=== PATIENT | male | born 1975 | race Caucasian/White ===

== ENCOUNTER 2019-06-20 11:59 | Day surgery (SDC) | payer SELFPAY ==
[~2019-06-20] VITALS: Ht 177.8 cm; Wt 81.8 kg
[~2019-06-20 11:59] MED LIST: ATEN25TA PO; ELIQ5TAB PO
[2019-06-20] MEDS ORDERED: LIDOCAINE 2% INJ 100 MG/5 ML SDV (FOR ANES.) As Ordered ONE (13:00)
[2019-06-20] MEDS ORDERED: LR 1,000 ML IV ONE (13:00)
[2019-06-20] MEDS ORDERED: PROPOFOL 200 MG/20 ML VIAL As Ordered ONE (13:00)
[2019-06-20] MEDS ORDERED: MIDAZOLAM INJ 2 MG/2 ML VIAL (J2250) As Ordered ONE (13:41)
[2019-06-20 14:56] VITALS: BP 112/73
--- NOTE | 2019-06-20 14:56 | RO ---
DATE OF PROCEDURE: 06/20/2019 PREPROCEDURE DIAGNOSIS: Persistent atrial fibrillation. POSTPROCEDURE DIAGNOSIS: Normal sinus rhythm. FINDINGS: Successful direct cardioversion. PROCEDURE PERFORMED: Direct current electrocardioversion. SURGEON: Dr. Adam Reid. DEMAND GENERATION MANAGER: None. ANESTHESIA: IV sedation with monitored anesthetic care (propofol) administered by certified registered nurse fur cleaner (BODY ENGINEER). COMPLICATIONS: None. DESCRIPTION OF PROCEDURE: The patient received lidocaine IV followed by propofol as administered by the BODY ENGINEER. Prior to the start of the procedure, electrical cardioversion patches were placed by Dr. Reid with the sternal patch placed over the left posterior hemithorax and the apical patch placed over the left anterior chest. (i.e., reverse polarity). Once the patient was adequately sedated, he received a single 150 joule synchronized direct current cardioversion shock, which failed to convert him to sinus rhythm. He was then given a second shock 200 joules, synchronized direct current, which was successful converting him to sinus rhythm. The procedure was uncomplicated and no episodes of excessive sinus pause was observed following the cardioversion.
[2019-06-20] MEDS ORDERED: ACETAMINOPHEN TAB 650MG DOSE (2X325MG) PO PRN (16:01)
--- NOTE | 2019-06-21 14:47 | ECGEPIP ---
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
== END 2019-06-20 15:18 | disposition home or self-care (01) ==
LOC: M SDC 11:59
PROVIDERS: ATTEND Internal Medicine Cardiovascular Disease
DX: I48.1 Persistent atrial fibrillation (principal); Z79.01 Long term (current) use of anticoagulants
CPT/HCPCS: 92960; 93005; J2250

== ENCOUNTER → 2022-01-21 | Outpatient (CLI) | payer OTHER ==
[~2022-01-21] MED LIST changes: +CAPE1TAB PO; +CAPE1TAB2 PO; +COLA100C5 PO; +ECOT81TA5 PO; +GASTROGRAFIN SOLUTION 30ML (Q9963) As Ordered ONE; +ISOVUE-370 76% 100ML VIAL As Ordered ONE; +OXYC1CAP PO
== END ==
LOC: M RAD 15:03
PROVIDERS: ATTEND Specialist
DX: C20 Malignant neoplasm of rectum (principal)
CPT/HCPCS: 71260; 74177; Q9963; Q9967

== ENCOUNTER → 2022-01-22 | Outpatient (CLI) | payer OTHER ==
[~2022-01-22] MED LIST changes: -GASTROGRAFIN SOLUTION 30ML (Q9963) As Ordered ONE; +HYDR-3715 PO; +HYDR-4429 PO; -ISOVUE-370 76% 100ML VIAL As Ordered ONE
== END ==
LOC: M ONCR 10:24
PROVIDERS: ATTEND Radiology Radiation Oncology
DX: C20 Malignant neoplasm of rectum (principal)

== ENCOUNTER → 2022-03-02 | Outpatient (RCR) | payer OTHER ==
[~2022-03-02] MED LIST changes: +HYDR-3713 PO; +ONDA-84 PO; +PROC10TA5 PO
== END ==
LOC: M ONCR 02-03 10:29
PROVIDERS: ATTEND General Practice
DX: C20 Malignant neoplasm of rectum (principal)

== ENCOUNTER 2022-03-24 08:05 | Outpatient (RCR) | payer OTHER ==
[~2022-03-24 08:05] MED LIST changes: +HALO5TAB33 PO; +LIDO1CRE2 TOP; +LIDO3CRE14 TOP; +METO5TAB2 PO; +MORP-69 PO
[2022-03-24] MEDS ORDERED: PEPC1TAB5 PO (09:54)
[2022-03-24] MEDS ORDERED: LOPE2TAB12 PO (09:54)
[2022-03-24] MEDS ORDERED: LIDO2SOL17 PO (10:14)
[2022-03-24] MEDS ORDERED: LOMO2.5T PO (10:15)
[2022-03-24] MEDS ORDERED: OMEP-173 PO (10:21)
== END 2022-04-01 ==
LOC: M ONCR 08:05
PROVIDERS: ATTEND General Practice
DX: C20 Malignant neoplasm of rectum (principal)

== ENCOUNTER → 2022-04-20 | Outpatient (CLI) | payer OTHER ==
[~2022-04-20] MED LIST changes: +CLAR1TAB13 PO; +DIBU28OI2 TOP; +DILA2TAB6 PO; +DILT300C21 PO; +LIDO1CRE42 TOP; +LIDO2SOL17 PO; +LOMO2.5T PO; +LOPE2TAB12 PO; +METO1TAB32 PO; +NYAM10003 EX; +OMEP-173 PO; +PEPC1TAB5 PO; +[UNRECOGNIZED DRUG - CODE] RC
== END ==
LOC: M LABSMTC 10:12
PROVIDERS: ATTEND Anesthesiology
DX: Z11.52 Encounter for screening for COVID-19 (principal)

== ENCOUNTER 2022-04-25 21:58 | Inpatient (IN) | payer OTHER ==
[~2022-04-25] VITALS: Ht 177.8 cm; Wt 77.8 kg
[2022-04-25 22:39] LABS: BASO # 0.1 10^3/uL (0.0-0.2); BASO % 0.3 % (0.0-1.0); EOS % 0.1 % (0.0-3.0); HEMATOCRIT 35.8 % (42.0-52.0); HEMOGLOBIN 11.8 g/dl (13.5-17.5); LYMPH # 0.8 10^3/uL (1.5-5.0); LYMPH % 3.9 % (24.0-44.0); MEAN CORPUSCULAR HEMOGLOBIN 32.1 pg (27.0-33.0); MEAN CORPUSCULAR VOLUME 97.3 fl (80.0-96.0); MONO # 1.5 10^3/uL (0.0-0.8); MONO % 7.8 % (2.0-8.0); NEUTROPHILS # 16.7 10^3/uL (1.5-8.5); NEUTROPHILS % 87.3 % (36.0-66.0); PLATELET COUNT, AUTOMATED 341 10^3/uL (150-450); RED BLOOD COUNT 3.68 10^6/uL (4.30-6.10); WHITE BLOOD COUNT 19.1 10^3/uL (4.0-10.0)
[2022-04-25 23:04] LABS: CK-MB VALUE MASS < 1.0 NG/ML (<3.6); CPK CREATINE PHOSPHOKINASE 15 U/L (39-308); MB/CK RELATIVE INDEX 6.67 (< OR =4)
[2022-04-25] MEDS ORDERED: HYDROMORPHONE HCL 0.5 MG/ 0.5 ML SYRINGE (J1170 PER 1) IV ONE (23:10)
[2022-04-25] MEDS ORDERED: NS 1,000 ML IV ONE (23:10)
[2022-04-25 23:17] LABS: ALBUMIN 2.7 GM/DL (3.2-5.2); ALT/SGPT 18 U/L (12-78); BILIRUBIN,DIRECT < 0.1 MG/DL (0.0-0.2); BLOOD UREA NITROGEN 16 MG/DL (7-18); CALCIUM LEVEL 8.7 MG/DL (8.5-10.1); CARBON DIOXIDE LEVEL 22 MEQ/L (21-32); CHLORIDE LEVEL 104 MEQ/L (98-107); CREATININE FOR GFR 0.74 MG/DL (0.70-1.30); GLOMERULAR FILTRATION RATE > 60.0 (>60); GLUCOSE, FASTING 159 MG/DL (70-100); POTASSIUM SERUM 5.5 MEQ/L (3.5-5.1); SODIUM LEVEL 135 MEQ/L (136-145); TOTAL PROTEIN 6.2 GM/DL (6.4-8.2)
[2022-04-25] MEDS ORDERED: ISOVUE-370 76% 100ML VIAL As Ordered ONE (23:30)
[2022-04-26] VITALS (16 sets, daily range): BP systolic 101–131; BP diastolic 61–79; O2SAT 93–96
[2022-04-26] MEDS: HYDROMORPHONE HCL 0.5 MG/ 0.5 ML SYRINGE (J1170 PER 1) IV PRN ×8 (00:23→23:55)
[2022-04-26 01:17] LABS: RSV AMPLIFICATION NEGATIVE (NEGATIVE)
[2022-04-26] MEDS ORDERED: AZITHROMYCIN INJ 500 MG, VIAL MATE ADAPTER 1 EACH in NS 250 ML IV ONE (01:20)
[2022-04-26] MEDS ORDERED: cefTRIAXone SOD 1 GM in D5W MINI-BAG PLUS 50 ML IV ONE (01:20)
[2022-04-26] MEDS ORDERED: CLAR10CA3 PO (01:34)
[2022-04-26] MEDS ORDERED: METO1TAB87 PO (01:34)
[2022-04-26] MEDS ORDERED: CODCAP26 PO (01:35)
[2022-04-26] MEDS ORDERED: med rec comment (01:36)
[2022-04-26] MEDS ORDERED: HOME MED LIST COMPLETE! XX SCH (01:40)
[2022-04-26] MEDS ORDERED: MAALOX 30 ML SUSP *UDC PO PRN (02:05)
[2022-04-26] MEDS ORDERED: MOM 30ML SUSPENSION UDC PO PRN (02:05)
[2022-04-26] MEDS ORDERED: HYDROMORPHONE HCL 0.5 MG/ 0.5 ML SYRINGE (J1170 PER 1) IV ONE (02:25)
[2022-04-26] MEDS: METOPROLOL 5 MG/5 ML VIAL IV SCH ×4 (02:55→05:14)
[2022-04-26] MEDS ORDERED: PATIROMER SORBITEX CALCIUM 8.4 GM POWDER PACKET (VELTASSA) PO ONE (04:00)
[2022-04-26] MEDS: ENOXAPARIN 80MG/0.8ML SYRINGE (J1650 PER 10MG) SC SCH ×3 (04:02→22:20)
[2022-04-26 04:15] LABS: BASO # 0.1 10^3/uL (0.0-0.2); BASO % 0.3 % (0.0-1.0); EOS % 0.1 % (0.0-3.0); HEMATOCRIT 33.3 % (42.0-52.0); HEMOGLOBIN 10.5 g/dl (13.5-17.5); LYMPH # 1.2 10^3/uL (1.5-5.0); MEAN CORPUSCULAR HGB CONC 31.5 g/dl (32.0-36.5); MEAN CORPUSCULAR VOLUME 101.5 fl (80.0-96.0); MONO # 1.2 10^3/uL (0.0-0.8); MONO % 8.3 % (2.0-8.0); PLATELET COUNT, AUTOMATED 269 10^3/uL (150-450); RED BLOOD COUNT 3.28 10^6/uL (4.30-6.10); WHITE BLOOD COUNT 14.5 10^3/uL (4.0-10.0)
[2022-04-26] MEDS: CIPROFLOXACIN 400 MG in IV 1 EA IV SCH ×2 (04:19→15:13)
[2022-04-26] MEDS: NORCO, ANEXSIA 5/325MG TABLET (HYDROcodone/ACETAMINOPHEN) PO PRN ×5 (04:20→22:19)
[2022-04-26 04:43] LABS: ALBUMIN 2.3 GM/DL (3.2-5.2); ALT/SGPT 12 U/L (12-78); BILIRUBIN,TOTAL 0.6 MG/DL (0.2-1.0); BLOOD UREA NITROGEN 12 MG/DL (7-18); CALCIUM LEVEL 8.2 MG/DL (8.5-10.1); CARBON DIOXIDE LEVEL 25 MEQ/L (21-32); CHLORIDE LEVEL 106 MEQ/L (98-107); CREATININE FOR GFR 0.68 MG/DL (0.70-1.30); GLOMERULAR FILTRATION RATE > 60.0 (>60); GLUCOSE, FASTING 126 MG/DL (70-100); MAGNESIUM LEVEL 1.3 MG/DL (1.8-2.4); POTASSIUM SERUM 4.2 MEQ/L (3.5-5.1); SODIUM LEVEL 137 MEQ/L (136-145); TOTAL PROTEIN 5.8 GM/DL (6.4-8.2)
[2022-04-26] MEDS ORDERED: NS 1,000 ML IV ONE (05:10)
[2022-04-26] MEDS: metroNIDAZOLE 500 MG in IV 1 EA IV SCH ×3 (05:16→22:20)
[2022-04-26] MEDS: METOPROLOL TART 25 MG TABLET PO SCH ×3 (05:20→22:19)
[2022-04-26] MEDS: MAG SULF 1GM/100ML (MAG RUN) 1 GM in IV 1 EA IV SCH ×2 (05:36→06:23)
[2022-04-26] MEDS: ASPIRIN 81MG ENTERIC TABLET PO SCH (08:05)
[2022-04-26] MEDS: OMEPRAZOLE 20MG CAP PO SCH ×2 (08:06→22:19)
[2022-04-26] MEDS: DOCUSATE SODIUM 100MG CAPSULE PO SCH ×3 (08:06→22:18)
[2022-04-26] MEDS ORDERED: LOVE0.6I2 SC (10:49)
[2022-04-26] MEDS: MIRALAX *UNIT DOSE* 17GM PACKET PO SCH ×2 (13:22→22:19)
[2022-04-26] MEDS ORDERED: MORPHINE 4 MG/ML 1ML VIAL/SYRINGE IV ONE (14:20)
[2022-04-26] MEDS: LORATADINE 10 MG TAB PO SCH (22:19)
[2022-04-27] VITALS (16 sets, daily range): BP systolic 98–130; BP diastolic 58–78; O2SAT 92–95
[2022-04-27] MEDS: HYDROMORPHONE HCL 0.5 MG/ 0.5 ML SYRINGE (J1170 PER 1) IV PRN ×7 (02:59→22:11)
[2022-04-27] MEDS: ENOXAPARIN 80MG/0.8ML SYRINGE (J1650 PER 10MG) SC SCH ×2 (02:59→15:40)
[2022-04-27] MEDS: CIPROFLOXACIN 400 MG in IV 1 EA IV SCH (02:59)
[2022-04-27] MEDS: metroNIDAZOLE 500 MG in IV 1 EA IV SCH ×2 (05:17→15:29)
[2022-04-27] MEDS: METOPROLOL TART 25 MG TABLET PO SCH ×3 (06:00→22:14)
[2022-04-27 06:21] LABS: BLOOD UREA NITROGEN 11 MG/DL (7-18); CALCIUM LEVEL 8.3 MG/DL (8.5-10.1); CARBON DIOXIDE LEVEL 27 mmol/L (20-29); CHLORIDE LEVEL 101 MEQ/L (98-107); GLOMERULAR FILTRATION RATE > 60.0 (>60); GLUCOSE, FASTING 107 MG/DL (70-100); MAGNESIUM LEVEL 1.5 MG/DL (1.8-2.4); POTASSIUM SERUM 4.2 MEQ/L (3.5-5.1); SODIUM LEVEL 134 MEQ/L (136-145)
[2022-04-27] MEDS: DOCUSATE SODIUM 100MG CAPSULE PO SCH ×3 (08:01→22:13)
[2022-04-27] MEDS: ASPIRIN 81MG ENTERIC TABLET PO SCH (08:01)
[2022-04-27] MEDS: MIRALAX *UNIT DOSE* 17GM PACKET PO SCH ×2 (08:01→21:52)
[2022-04-27] MEDS: OMEPRAZOLE 20MG CAP PO SCH ×2 (08:01→22:13)
[2022-04-27] MEDS: ACETAMINOPHEN TAB 650MG DOSE (2X325MG) PO PRN ×2 (08:03→14:14)
[2022-04-27] MEDS: MAG SULF 1GM/100ML (MAG RUN) 1 GM in IV 1 EA IV SCH ×3 (10:58→13:51)
[2022-04-27] MEDS: METOPROLOL 5 MG/5 ML VIAL IV PRN (11:47)
[2022-04-27] MEDS ORDERED: IBUPROFEN 400MG TAB PO ONE (15:35)
[2022-04-27] MEDS: SENNA 8.6 MG TAB (SENOKOT) PO SCH ×2 (15:44→21:00)
[2022-04-27] MEDS: PIPERACILLIN/TAZOBACTAM SOD 3.375 GM in D5W MINI-BAG PLUS 50 ML IV SCH ×2 (15:52→22:14)
[2022-04-27] MEDS: DOXYCYCLINE HYCLATE 100 MG in D5W MINI-BAG PLUS 100 ML IV SCH (17:32)
[2022-04-27] MEDS ORDERED: NS 500 ML IV ONE ×2 (17:35→19:25)
[2022-04-27] MEDS: LORATADINE 10 MG TAB PO SCH (22:13)
[2022-04-28] VITALS (13 sets, daily range): BP systolic 96–119; BP diastolic 64–71; O2SAT 92–96
[2022-04-28] MEDS: HYDROMORPHONE HCL 0.5 MG/ 0.5 ML SYRINGE (J1170 PER 1) IV PRN ×5 (01:31→14:27)
[2022-04-28] MEDS: DOXYCYCLINE HYCLATE 100 MG in D5W MINI-BAG PLUS 100 ML IV SCH ×2 (04:16→17:47)
[2022-04-28] MEDS: PIPERACILLIN/TAZOBACTAM SOD 3.375 GM in D5W MINI-BAG PLUS 50 ML IV SCH ×4 (04:16→22:01)
[2022-04-28] MEDS: ENOXAPARIN 80MG/0.8ML SYRINGE (J1650 PER 10MG) SC SCH ×2 (04:17→15:53)
[2022-04-28] MEDS: METOPROLOL 5 MG/5 ML VIAL IV PRN (05:06)
[2022-04-28 05:31] LABS: HEMATOCRIT 29.1 % (42.0-52.0); HEMOGLOBIN 9.2 g/dl (13.5-17.5); MEAN CORPUSCULAR HEMOGLOBIN 31.4 pg (27.0-33.0); MEAN CORPUSCULAR HGB CONC 31.6 g/dl (32.0-36.5); MEAN CORPUSCULAR VOLUME 99.3 fl (80.0-96.0); PLATELET COUNT, AUTOMATED 247 10^3/uL (150-450); RED BLOOD COUNT 2.93 10^6/uL (4.30-6.10); WHITE BLOOD COUNT 11.3 10^3/uL (4.0-10.0)
[2022-04-28 05:54] LABS: BLOOD UREA NITROGEN 9 MG/DL (7-18); CALCIUM LEVEL 7.9 MG/DL (8.5-10.1); CARBON DIOXIDE LEVEL 28 MEQ/L (21-32); CHLORIDE LEVEL 103 MEQ/L (98-107); CREATININE FOR GFR 0.53 MG/DL (0.70-1.30); GLOMERULAR FILTRATION RATE > 60.0 (>60); GLUCOSE, FASTING 109 MG/DL (70-100); MAGNESIUM LEVEL 1.8 MG/DL (1.8-2.4); POTASSIUM SERUM 4.2 MEQ/L (3.5-5.1); SODIUM LEVEL 137 MEQ/L (136-145)
[2022-04-28] MEDS: METOPROLOL TART 25 MG TABLET PO SCH ×3 (06:12→22:00)
[2022-04-28] MEDS: ASPIRIN 81MG ENTERIC TABLET PO SCH (07:52)
[2022-04-28] MEDS: DOCUSATE SODIUM 100MG CAPSULE PO SCH ×3 (07:53→20:38)
[2022-04-28] MEDS: OMEPRAZOLE 20MG CAP PO SCH ×2 (07:53→22:01)
[2022-04-28] MEDS: SENNA 8.6 MG TAB (SENOKOT) PO SCH ×2 (07:54→20:39)
[2022-04-28] MEDS: MIRALAX *UNIT DOSE* 17GM PACKET PO SCH ×2 (07:54→20:39)
[2022-04-28] MEDS ORDERED: PERCOCET 5MG/325MG TAB PO PRN (10:50)
[2022-04-28] MEDS: ACETAMINOPHEN TAB 650MG DOSE (2X325MG) PO PRN ×2 (11:45→23:56)
[2022-04-28] MEDS: HYDROmorphone 2 MG TAB PO PRN ×2 (18:46→22:39)
[2022-04-28] MEDS: LORATADINE 10 MG TAB PO SCH (22:01)
[2022-04-29] VITALS (7 sets, daily range): BP systolic 92–115; BP diastolic 60–71
[2022-04-29] MEDS: HYDROMORPHONE HCL 0.5 MG/ 0.5 ML SYRINGE (J1170 PER 1) IV PRN ×3 (02:51→22:15)
[2022-04-29] MEDS: ENOXAPARIN 80MG/0.8ML SYRINGE (J1650 PER 10MG) SC SCH ×2 (04:49→16:48)
[2022-04-29] MEDS: PIPERACILLIN/TAZOBACTAM SOD 3.375 GM in D5W MINI-BAG PLUS 50 ML IV SCH ×4 (04:49→21:06)
[2022-04-29] MEDS: DOXYCYCLINE HYCLATE 100 MG in D5W MINI-BAG PLUS 100 ML IV SCH ×2 (04:50→18:08)
[2022-04-29] MEDS: HYDROmorphone 2 MG TAB PO PRN ×3 (04:59→19:18)
[2022-04-29] MEDS: METOPROLOL TART 25 MG TABLET PO SCH ×3 (06:41→21:07)
[2022-04-29 07:38] LABS: HEMOGLOBIN 9.6 g/dl (13.5-17.5); MEAN CORPUSCULAR HEMOGLOBIN 30.6 pg (27.0-33.0); MEAN CORPUSCULAR VOLUME 98.7 fl (80.0-96.0); PLATELET COUNT, AUTOMATED 265 10^3/uL (150-450); RED BLOOD COUNT 3.14 10^6/uL (4.30-6.10); WHITE BLOOD COUNT 8.2 10^3/uL (4.0-10.0)
[2022-04-29] MEDS: ASPIRIN 81MG ENTERIC TABLET PO SCH (07:54)
[2022-04-29] MEDS: OMEPRAZOLE 20MG CAP PO SCH ×2 (07:55→21:08)
[2022-04-29 08:22] LABS: BLOOD UREA NITROGEN 5 MG/DL (7-18); CALCIUM LEVEL 8.2 MG/DL (8.5-10.1); CARBON DIOXIDE LEVEL 29 MEQ/L (21-32); CHLORIDE LEVEL 103 MEQ/L (98-107); CREATININE FOR GFR 0.63 MG/DL (0.70-1.30); FERRITIN 438 NG/ML (26-388); GLOMERULAR FILTRATION RATE > 60.0 (>60); GLUCOSE, FASTING 113 MG/DL (70-100); IRON (FE) 10 UG/DL (65-175); MAGNESIUM LEVEL 1.9 MG/DL (1.8-2.4); PERCENT SATURATION 8.8 % (19.7-50.0); POTASSIUM SERUM 3.5 MEQ/L (3.5-5.1); SODIUM LEVEL 138 MEQ/L (136-145); TOTAL IRON BINDING CAPACITY 113 UG/DL (250-450)
[2022-04-29] MEDS: MIRALAX *UNIT DOSE* 17GM PACKET PO SCH ×2 (08:22→21:00)
[2022-04-29] MEDS: SENNA 8.6 MG TAB (SENOKOT) PO SCH ×2 (08:22→21:00)
[2022-04-29] MEDS: DOCUSATE SODIUM 100MG CAPSULE PO SCH ×3 (08:22→21:00)
[2022-04-29] MEDS ORDERED: IRON SUCROSE 100MG 5ML VIAL (J1756 PER 1MG) IV ONE (11:45)
[2022-04-29] MEDS: diltiaZEM **CD** 180 MG CAP PO SCH (12:19)
[2022-04-29] MEDS ORDERED: FERRIC CARBOXYMALTOSE INJ 750 MG, VIAL MATE ADAPTER 1 EACH in NS 250 ML IV ONE (15:00)
[2022-04-29] MEDS ORDERED: IRON SUCROSE IV ONE (15:00)
[2022-04-29] MEDS ORDERED: NS IV ONE (15:00)
[2022-04-29 16:08] LABS: BODY FLUID CULTURE Not indicated. (.); LEGIONELLA ANTIGEN URINE Negative (Negative); ORGANISM ID Not indicated. (.); SPECIMEN SOURCE Urine (.); URINE STREP PNEUMONIAE ANTIGEN Negative (Negative)
[2022-04-29] MEDS: LORATADINE 10 MG TAB PO SCH (21:07)
[2022-04-29] MEDS: ACETAMINOPHEN TAB 650MG DOSE (2X325MG) PO PRN (23:53)
[2022-04-30] VITALS: BP 103/57
[2022-04-30 04:00] VITALS: BP 111/70
[2022-04-30] MEDS: PIPERACILLIN/TAZOBACTAM SOD 3.375 GM in D5W MINI-BAG PLUS 50 ML IV SCH ×4 (04:08→20:48)
[2022-04-30] MEDS: HYDROmorphone 2 MG TAB PO PRN ×4 (04:09→20:48)
[2022-04-30] MEDS: ENOXAPARIN 80MG/0.8ML SYRINGE (J1650 PER 10MG) SC SCH ×2 (04:10→16:02)
[2022-04-30] MEDS: DOXYCYCLINE HYCLATE 100 MG in D5W MINI-BAG PLUS 100 ML IV SCH (05:16)
[2022-04-30] MEDS: METOPROLOL TART 25 MG TABLET PO SCH ×3 (06:19→20:35)
[2022-04-30 07:46] VITALS: BP 98/70
[2022-04-30 08:22] LABS: HEMATOCRIT 26.3 % (42.0-52.0); HEMOGLOBIN 8.4 g/dl (13.5-17.5); MEAN CORPUSCULAR HEMOGLOBIN 31.1 pg (27.0-33.0); MEAN CORPUSCULAR HGB CONC 31.9 g/dl (32.0-36.5); MEAN CORPUSCULAR VOLUME 97.4 fl (80.0-96.0); PLATELET COUNT, AUTOMATED 258 10^3/uL (150-450); WHITE BLOOD COUNT 5.4 10^3/uL (4.0-10.0)
[2022-04-30] MEDS: ASPIRIN 81MG ENTERIC TABLET PO SCH (08:25)
[2022-04-30] MEDS: OMEPRAZOLE 20MG CAP PO SCH ×2 (08:25→20:35)
[2022-04-30] MEDS: diltiaZEM **CD** 180 MG CAP PO SCH (08:25)
[2022-04-30 08:46] LABS: BLOOD UREA NITROGEN 4 MG/DL (7-18); CALCIUM LEVEL 8.2 MG/DL (8.5-10.1); CARBON DIOXIDE LEVEL 29 MEQ/L (21-32); CHLORIDE LEVEL 105 MEQ/L (98-107); CREATININE FOR GFR 0.48 MG/DL (0.70-1.30); GLOMERULAR FILTRATION RATE > 60.0 (>60); GLUCOSE, FASTING 90 MG/DL (70-100); MAGNESIUM LEVEL 1.8 MG/DL (1.8-2.4); POTASSIUM SERUM 3.4 MEQ/L (3.5-5.1); SODIUM LEVEL 141 MEQ/L (136-145)
[2022-04-30 12:00] VITALS: BP 112/65
[2022-04-30] MEDS ORDERED: POTASSIUM CHLORIDE 10MEQ SR TABLET PO ONE (12:30)
[2022-04-30 16:00] VITALS: BP 107/59
[2022-04-30 20:25] VITALS: BP 126/74
[2022-04-30] MEDS: DOXYCYCLINE HYCLATE 100MG TABLET PO SCH (20:35)
[2022-04-30] MEDS: LORATADINE 10 MG TAB PO SCH (20:35)
[2022-05-01] VITALS: BP 100/66
[2022-05-01 03:39] VITALS: BP 117/68
[2022-05-01] MEDS: ENOXAPARIN 80MG/0.8ML SYRINGE (J1650 PER 10MG) SC SCH (03:43)
[2022-05-01] MEDS: PIPERACILLIN/TAZOBACTAM SOD 3.375 GM in D5W MINI-BAG PLUS 50 ML IV SCH ×2 (03:43→10:00)
[2022-05-01] MEDS: HYDROMORPHONE HCL 0.5 MG/ 0.5 ML SYRINGE (J1170 PER 1) IV PRN (03:44)
[2022-05-01 05:13] LABS: HEMATOCRIT 26.8 % (42.0-52.0); HEMOGLOBIN 8.4 g/dl (13.5-17.5); MEAN CORPUSCULAR HEMOGLOBIN 30.3 pg (27.0-33.0); MEAN CORPUSCULAR HGB CONC 31.3 g/dl (32.0-36.5); MEAN CORPUSCULAR VOLUME 96.8 fl (80.0-96.0); PLATELET COUNT, AUTOMATED 286 10^3/uL (150-450); RED BLOOD COUNT 2.77 10^6/uL (4.30-6.10); WHITE BLOOD COUNT 5.8 10^3/uL (4.0-10.0)
[2022-05-01 05:39] LABS: BLOOD UREA NITROGEN 4 MG/DL (7-18); CARBON DIOXIDE LEVEL 29 MEQ/L (21-32); CHLORIDE LEVEL 105 MEQ/L (98-107); GLOMERULAR FILTRATION RATE > 60.0 (>60); GLUCOSE, FASTING 125 MG/DL (70-100); MAGNESIUM LEVEL 1.6 MG/DL (1.8-2.4); POTASSIUM SERUM 3.3 MEQ/L (3.5-5.1); SODIUM LEVEL 140 MEQ/L (136-145)
[2022-05-01] MEDS: METOPROLOL TART 25 MG TABLET PO SCH ×2 (06:20→13:00)
[2022-05-01] MEDS ORDERED: POTASSIUM CHLORIDE 10MEQ SR TABLET PO ONE ×2 (07:15→10:00)
[2022-05-01 08:00] VITALS: BP 113/68
[2022-05-01] MEDS: ASPIRIN 81MG ENTERIC TABLET PO SCH (08:17)
[2022-05-01] MEDS: diltiaZEM **CD** 180 MG CAP PO SCH (08:17)
[2022-05-01] MEDS: DOXYCYCLINE HYCLATE 100MG TABLET PO SCH (08:18)
[2022-05-01] MEDS: OMEPRAZOLE 20MG CAP PO SCH (08:18)
[2022-05-01] MEDS: HYDROmorphone 2 MG TAB PO PRN ×2 (08:25→12:45)
[2022-05-01] MEDS ORDERED: CARD1TAB5 PO (10:09)
[2022-05-01] MEDS ORDERED: DOXY100T PO (10:09)
[2022-05-01] MEDS ORDERED: METO50TA7 PO (10:09)
[2022-05-01] MEDS ORDERED: AMOX875T2 PO (10:09)
[2022-05-01] MEDS ORDERED: HYDR2TAB2 PO (11:45)
[2022-05-01] MEDS ORDERED: DILT1CAP10 PO (12:18)
[2022-05-01 13:00] VITALS: BP 118/70
== END 2022-05-01 13:07 | disposition home health service (06) | DRG 720 ==
LOC: M ED 21:58 → M ED INP 04-26 02:02 → M PCU 04-26 03:49
PROVIDERS: ADMIT Family Medicine; ATTEND Internal Medicine
DX: A41.9 Sepsis, unspecified organism (principal); I26.99 Other pulmonary embolism without acute cor pulmonale; J18.9 Pneumonia, unspecified organism; C20 Malignant neoplasm of rectum; E87.5 Hyperkalemia; K52.9 Noninfective gastroenteritis and colitis, unspecified; I48.91 Unspecified atrial fibrillation; K59.00 Constipation, unspecified; Z79.82 Long term (current) use of aspirin; Z79.899 Other long term (current) drug therapy; Z92.3 Personal history of irradiation

== ENCOUNTER → 2022-05-11 | Outpatient (CLI) | payer OTHER ==
[~2022-05-11] MED LIST changes: +AMOX875T2 PO; +CARD1TAB5 PO; +CLAR10CA3 PO; +CODCAP26 PO; +DILT1CAP10 PO; +DOXY100T PO; +HYDR2TAB2 PO; +LOVE0.6I2 SC; +METO1TAB87 PO; +METO50TA7 PO; +med rec comment
== END ==
LOC: M RAD 08:27
PROVIDERS: ATTEND Specialist
DX: J18.9 Pneumonia, unspecified organism (principal)

== ENCOUNTER → 2022-09-14 | Outpatient (CLI) | payer OTHER ==
[~2022-09-14] MED LIST changes: +GASTROGRAFIN SOLUTION 30ML As Ordered ONE; +ISOVUE-370 76% 100ML VIAL As Ordered ONE; +METO37.5 PO
== END ==
LOC: M RAD 09:00
PROVIDERS: ATTEND Specialist
DX: C20 Malignant neoplasm of rectum (principal)

== ENCOUNTER → 2022-09-17 | Outpatient (CLI) | payer OTHER ==
[~2022-09-17] MED LIST changes: -GASTROGRAFIN SOLUTION 30ML As Ordered ONE; -ISOVUE-370 76% 100ML VIAL As Ordered ONE; +PROHANCE 279.3MG/ML 15ML VIAL As Ordered ONE; +PROHANCE 279.3MG/ML 5ML VIAL As Ordered ONE
== END ==
LOC: M RAD 08:43
PROVIDERS: ATTEND Specialist
DX: C20 Malignant neoplasm of rectum (principal)
CPT/HCPCS: 72197; A9576

== ENCOUNTER → 2022-11-29 | Outpatient (CLI) | payer OTHER ==
[~2022-11-29] MED LIST changes: +LIDO15SO4 PO; -LIDO2SOL17 PO; -PROHANCE 279.3MG/ML 15ML VIAL As Ordered ONE; -PROHANCE 279.3MG/ML 5ML VIAL As Ordered ONE
== END ==
LOC: M PLARAD 12:21
PROVIDERS: ATTEND Internal Medicine
DX: C20 Malignant neoplasm of rectum (principal)
CPT/HCPCS: 78815; A9552

== ENCOUNTER → 2023-05-30 | Outpatient (CLI) | payer OTHER ==
[~2023-05-30] MED LIST changes: -DILT1CAP10 PO; +DILT360C8 PO; +GABA-1171 PO; +LIDO15SO PO; -LIDO15SO4 PO; -LIDO1CRE42 TOP; +LIDO30CR18 TOP; +PROHANCE 279.3MG/ML 15ML VIAL As Ordered ONE; +PROHANCE 279.3MG/ML 5ML VIAL As Ordered ONE
== END ==
LOC: M RAD 08:55
PROVIDERS: ATTEND Specialist
DX: C20 Malignant neoplasm of rectum (principal)
CPT/HCPCS: 72197; A9576

== ENCOUNTER → 2023-09-21 | Outpatient (CLI) | payer OTHER ==
[~2023-09-21] MED LIST changes: +GASTROGRAFIN SOLUTION 30ML As Ordered ONE; +ISOVUE-370 76% 100ML VIAL As Ordered ONE; +METO25TA4 PO; -PROHANCE 279.3MG/ML 15ML VIAL As Ordered ONE; -PROHANCE 279.3MG/ML 5ML VIAL As Ordered ONE
== END ==
LOC: M RAD 11:29
PROVIDERS: ATTEND Specialist
DX: C20 Malignant neoplasm of rectum (principal)
CPT/HCPCS: 71260; 74177; Q9963; Q9967

== ENCOUNTER → 2024-03-16 | Outpatient (CLI) | payer BC ==
[~2024-03-16] MED LIST changes: +AMIO400T2; +ATEN25TA; +ELIQ5TAB; -LIDO15SO PO; +LIDO15SO8 PO; -OXYC1CAP PO; +OXYC1CAP2 PO
== END ==
LOC: M RAD 06:58
PROVIDERS: ATTEND Specialist
DX: C18.9 Malignant neoplasm of colon, unspecified (principal)
CPT/HCPCS: 71260; 74177; Q9963; Q9967

== ENCOUNTER → 2024-04-12 | Outpatient (CLI) | payer BC ==
[~2024-04-12] MED LIST changes: -GASTROGRAFIN SOLUTION 30ML As Ordered ONE; -ISOVUE-370 76% 100ML VIAL As Ordered ONE
== END ==
LOC: M RAD 07:09
PROVIDERS: ATTEND Specialist
DX: C20 Malignant neoplasm of rectum (principal)

== ENCOUNTER → 2024-04-27 | Outpatient (CLI) | payer BC ==
[~2024-04-27] VITALS: Ht 177.8 cm; Wt 95.0 kg
[~2024-04-27] MED LIST changes: +LIDOCAINE 1% MDV 20ML VIAL As Ordered ONE; +MIDAZOLAM INJ 2MG/2ML VIAL As Ordered ONE; +ceFAZolin 2 GM/D5W 50 ML IV BAG As Ordered ONE; +fentaNYL 100 MCG/2 ML INJECTION As Ordered ONE
[2024-04-27 07:12] VITALS: TEMP 97.4
[2024-04-27] MEDS: ceFAZolin SOD 2 GM in IV 1 EA IV ONE (08:04)
[2024-04-27 09:00] VITALS: BP 154/94; O2SAT 98
== END ==
LOC: M IRPRO 07:08
PROVIDERS: ATTEND Specialist
DX: C20 Malignant neoplasm of rectum (principal)
CPT/HCPCS: 36590; 99152; J0690; J2250; J3010

== ENCOUNTER → 2024-05-14 | Outpatient (CLI) | payer BC ==
[~2024-05-14] MED LIST changes: -LIDOCAINE 1% MDV 20ML VIAL As Ordered ONE; -MIDAZOLAM INJ 2MG/2ML VIAL As Ordered ONE; +PROHANCE 279.3MG/ML 15ML VIAL As Ordered ONE; +PROHANCE 279.3MG/ML 5ML VIAL As Ordered ONE; -ceFAZolin 2 GM/D5W 50 ML IV BAG As Ordered ONE; -fentaNYL 100 MCG/2 ML INJECTION As Ordered ONE
== END ==
LOC: M RAD 15:09
PROVIDERS: ATTEND Specialist
DX: C18.9 Malignant neoplasm of colon, unspecified (principal)
CPT/HCPCS: 72197; A9576

== ENCOUNTER → 2024-06-19 | Outpatient (CLI) | payer BC ==
[~2024-06-19] MED LIST changes: -PROHANCE 279.3MG/ML 15ML VIAL As Ordered ONE; -PROHANCE 279.3MG/ML 5ML VIAL As Ordered ONE
== END ==
LOC: M PLARAD 11:05
PROVIDERS: ATTEND Specialist
DX: C20 Malignant neoplasm of rectum (principal)
CPT/HCPCS: 78815; A9552

== ENCOUNTER → 2025-04-09 | Outpatient (CLI) | payer BC ==
[~2025-04-09] MED LIST changes: -LIDO1CRE2 TOP; +LIDO4CRE12 TOP; +METO1TAB32
== END ==
LOC: M PLARAD 12:45
PROVIDERS: ATTEND Specialist
DX: C20 Malignant neoplasm of rectum (principal)
CPT/HCPCS: 78815; A9552